=== PATIENT | female | born 1970 | race Caucasian/White ===

== ENCOUNTER 2021-02-02 15:49 | Emergency (ER) | payer OTHER ==
[2021-02-02] MEDS ORDERED: METFORMIN HCL500 MG PO (20:36)
== END 2021-02-02 20:45 | disposition home or self-care (01) ==
LOC: ER1 15:49
DX: E11.65 Type 2 diabetes mellitus with hyperglycemia (principal); F41.9 Anxiety disorder, unspecified; Z91.14 Patient's other noncompliance with medication regimen; Z88.5 Allergy status to narcotic agent
CPT/HCPCS: 70450; 82962; 99284